=== PATIENT | male | born 1975 | race African-American/Black ===

== ENCOUNTER 2017-03-25 13:50 | Emergency (ER) | payer SELFPAY ==
[2017-03-25] MEDS ORDERED: FLUORESCEIN OPHTH TEST STRIP. ×2 (15:38)
[2017-03-25] MEDS ORDERED: TETRACAINE 0.5% OPHTH SOLUTION 4ML BOTTLE. ×2 (15:42)
== END 2017-03-25 16:10 | disposition left against medical advice (07) ==
LOC: ER 16:10
DX: H57.8 Other specified disorders of eye and adnexa (principal); F17.200 Nicotine dependence, unspecified, uncomplicated; Z53.21 Procedure and treatment not carried out due to patient leaving prior to being seen by health care provider